=== PATIENT | male | born 1970 | race Caucasian/White ===

== ENCOUNTER 2024-03-05 21:13 | Emergency (ER) | payer MEDICAID ==
[~2024-03-05] VITALS: Ht 180.3 cm; Wt 116.8 kg
[~2024-03-05 21:13] MED LIST: ALLO100T PO; AMIT25TA10 PO; CARV3.122 PO; CYCL-1 PO; DICL50TA6 PO; FURO20TA4 PO; HYDR-4383 PO; LISI5TAB22 PO; METH4TAB81 PO; MONT-40 PO; NIA500ERT PO; SIMV-45 PO; SPIR25TA5 PO
[2024-03-05 22:12] LABS: ALANINE AMINOTRANSFERASE 26 U/L (12-78); ALBUMIN 4.6 G/DL (3.4-5.0); ALBUMIN/GLOBULIN RATIO 1.7 (1.1-1.5); ALKALINE PHOSPHATASE 48 IU/L (46-116); ANION GAP 7 (8-16); ASPARTATE AMINO TRANSFERASE 20 U/L (10-37); BILIRUBIN,TOTAL 0.5 MG/DL (0.1-1.0); BLOOD UREA NITROGEN 26 MG/DL (7-18); BUN/CREATININE RATIO 20.2 (10.0-20.0); CALCIUM 9.2 MG/DL (8.5-10.1); CHLORIDE 104 MMOL/L (99-107); CREATININE 1.29 MG/DL (0.60-1.10); GLUCOSE 90 MG/DL (70-104); LIPASE 24 U/L (16-77); POTASSIUM 3.9 MMOL/L (3.5-5.1); SODIUM 142 MMOL/L (135-145); TOTAL CARBON DIOXIDE 30.8 MMOL/L (24-32); TOTAL PROTEIN 7.3 G/DL (6.4-8.2); eCRCL 71 ML/MIN; eGFR 58 ML/MIN
[2024-03-05 22:14] LABS: BILIRUBIN,URINE NEGATIVE (Neg); CLARITY,URINE CLEAR (Clear); COLOR,URINE YELLOW (Yellow); GLUCOSE, URINE >=1000 mg/dl (Neg); KETONES,URINE NEGATIVE (Neg); LEUKOCYTE ESTERASE ,URINE NEGATIVE (Neg); NITRITES, URINE NEGATIVE (Neg); OCCULT BLOOD,URINE NEGATIVE (Neg); PH,URINE 5.5 (4.8-8.0); PROTEIN,URINE NEGATIVE (Neg); UROBILINOGEN,URINE 0.2 E.U/dL (0.2-1.0)
[2024-03-05 22:16] LABS: MONOCYTES # (AUTO) 0.8 X10'3 (0-0.9)
[2024-03-05 22:17] LABS: BASOPHILS # (AUTO) 0.1 X10'3 (0-0.2); BASOPHILS % (AUTO) 1.4 % (0-1); EOSINOPHILS % (AUTO) 0.5 % (0-6); HEMATOCRIT 41.6 % (42.0-52.0); HEMOGLOBIN 14.6 g/dl (14.0-17.9); LYMPHOCYTES % (AUTO) 14.4 % (21-51); MEAN CORPUSCULAR VOLUME 94.4 FL (78-98); MEAN PLATELET VOLUME 7.2 FL (7.4-10.4); MONOCYTES % (AUTO) 11.1 % (2-12); NEUTROPHILS # (AUTO) 5.2 X10'3 (1.8-7.7); NEUTROPHILS % (AUTO) 72.6 % (42-75); PLATELET COUNT 164 X10'3 (140-440); RED BLOOD COUNT 4.41 X10'6 (4.70-6.10); RED CELL DISTRIBUTION WIDTH 16.2 % (11.5-14.5); WHITE BLOOD COUNT 7.1 X10'3 (4.5-11.0)
[2024-03-05 22:19] LABS: UA COLLECTION TYPE NON-SPECIFIED
[2024-03-05 22:32] LABS: BACTERIA,URINE FEW /HPF (Neg); MUCUS STRANDS FEW /LPF (Neg); RBC,URINE NONE SEEN /HPF (0-2); SQUAMOUS EPITHELIAL CELL,UR FEW /LPF (FEW); WBC,URINE 0-4 /HPF (0-4)
[2024-03-05] MEDS ORDERED: MYCO250C46 PO (22:46)
[2024-03-05] MEDS ORDERED: PRED5TAB PO (22:47)
[2024-03-05] MEDS ORDERED: TACR0.5C20 PO (22:48)
[2024-03-05] MEDS ORDERED: SULF-14 PO (22:49)
[2024-03-05 22:50] LABS: TOTAL CELLS COUNTED 100
[2024-03-05 22:51] LABS: ANISOCYTOSIS 1+; PLATELET ESTIMATE NORMAL
[2024-03-05] MEDS ORDERED: AMLO2.5T2 PO (22:51)
[2024-03-05] MEDS ORDERED: VALG450T13 PO (22:51)
[2024-03-05] MEDS ORDERED: ASPI-1265 PO (22:53)
[2024-03-05] MEDS ORDERED: BUSP10TA11 PO (22:54)
[2024-03-05] MEDS ORDERED: OSC500T PO (22:55)
[2024-03-05] MEDS ORDERED: CHOL10008 PO (22:58)
[2024-03-05] MEDS ORDERED: EMPA25TA PO (22:59)
[2024-03-05] MEDS ORDERED: FAMO20TA8 PO (23:00)
[2024-03-05] MEDS ORDERED: SYN0.088T PO (23:03)
[2024-03-05] MEDS ORDERED: LISI20TA28 PO (23:03)
[2024-03-05] MEDS ORDERED: LORA10TA7 PO (23:04)
[2024-03-05] MEDS ORDERED: MAGN400C PO (23:05)
[2024-03-05] MEDS ORDERED: MULT-1085 PO (23:06)
[2024-03-05] MEDS ORDERED: SEMA1PEN3 SUBCUT (23:07)
[2024-03-05] MEDS ORDERED: SILD20TA PO (23:08)
[2024-03-05] MEDS ORDERED: FLO0.4C PO (23:09)
[2024-03-05] MEDS ORDERED: GLUC3SPR (23:11)
[2024-03-05] MEDS ORDERED: PER5325T PO (23:11)
[2024-03-05] MEDS ORDERED: INSU100I99 SUBCUT (23:16)
[2024-03-05] MEDS ORDERED: BUME1TAB8 PO (23:16)
[2024-03-05] MEDS ORDERED: INSU100I61 SQ (23:16)
[2024-03-05 23:19] LABS: PRO BRAIN NATRIURETIC PEPTIDE 1215 PG/ML (0-125)
[2024-03-05] MEDS: mag hydrox/Alum hydrox/simeth 30ml oral suspension PO ONE (23:23)
[2024-03-06] MEDS: ondansetron/PF 4mg/2ml inj IV ONE (00:16)
[2024-03-06] MEDS: morphine 4 MG/ML inj SYRINge IV ONE (00:17)
[2024-03-06] MEDS: proCHLORperazine 10 MG/2 ml inj IV ONE (02:07)
[2024-03-06] MEDS: loperamide 2mg capsule PO ONE (02:07)
[2024-03-06] MEDS: HYDROcodone/acetaminophen 5mg/325mg tablet PO ONE (02:08)
[2024-03-06] MEDS: pantoprazole 40 MG vial IV ONE (02:10)
[2024-03-06] MEDS ORDERED: ONDA-245 PO (02:31)
[2024-03-06] MEDS ORDERED: HYDR-3965 PO (02:31)
[2024-03-06 02:40] VITALS: BP 132/68; PULSE 84; RESP 14; TEMP 98.2; O2SAT 99
[2024-03-06 11:19] LABS: C DIFF ANTIGEN NEGATIVE (NEGATIVE); C DIFF SPECIMEN=DIARRHEA? ACCEPTABLE; C DIFFICILE TOXINS A&B NEGATIVE (Neg)
== END 2024-03-06 02:42 | disposition home or self-care (01) ==
LOC: ER 21:14
DX: K52.9 Noninfective gastroenteritis and colitis, unspecified (principal); E78.00 Pure hypercholesterolemia, unspecified; Z95.0 Presence of cardiac pacemaker; Z91.040 Latex allergy status; Z79.82 Long term (current) use of aspirin; Z79.899 Other long term (current) drug therapy; Z79.4 Long term (current) use of insulin; Z88.5 Allergy status to narcotic agent
CPT/HCPCS: 36415; 74176; 80053; 81001; 83690; 83880; 84145; 84484; 85007; 85025; 87324; 87449; 96365; 96375; 99285; J0780; J2270; J2405; J2470